=== PATIENT | male | born 1985 | race Two or more races ===

== ENCOUNTER 2020-11-03 14:15 | Emergency (ER) | payer MEDICAID ==
[~2020-11-03] VITALS: Ht 165.1 cm; Wt 90.9 kg
[~2020-11-03 14:15] MED LIST: ASPI-630 PO; ATOR20TA58 PO; INSU100V13 SQ; LINA1TAB5 PO; SITA1TAB11 PO; TERB250T84 PO
[2020-11-03] MEDS ORDERED: TETRACAINE 0.5% OPHTH SOLUTION 4ML BOTTLE. ONE (15:11)
[2020-11-03] MEDS ORDERED: FLUORESCEIN OPHTH TEST STRIP. ONE (15:11)
[2020-11-03] MEDS ORDERED: EYE-STREAM OPHTH SOLUTION 120 ML BOTTLE. OD ONE (15:30)
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
[2020-11-03] MEDS ORDERED: TETRACAINE 0.5% OPHTH SOLUTION 4ML BOTTLE. OD ONE (15:45)
[2020-11-03] MEDS ORDERED: FLUORESCEIN OPHTH TEST STRIP. OD ONE (15:45)
[2020-11-03 16:01] VITALS: BP 130/86
[2020-11-03] MEDS ORDERED: KETO5DRO24 EACHEYE (16:08)
[2020-11-03] MEDS ORDERED: ERYT1OIN6 OP (16:14)
[2020-11-03] MEDS ORDERED: ERYTHROMYCIN 0.5% OPHTH OINTMENT 1GM TUBE. OD ONE (16:15)
== END 2020-11-03 17:00 | disposition home or self-care (01) ==
LOC: ER 14:15
DX: S05.01XA Injury of conjunctiva and corneal abrasion without foreign body, right eye, initial encounter (principal); H93.13 Tinnitus, bilateral; E10.9 Type 1 diabetes mellitus without complications; E78.00 Pure hypercholesterolemia, unspecified; Z87.891 Personal history of nicotine dependence; X58.XXXA Exposure to other specified factors, initial encounter; Y93.89 Activity, other specified; Y92.89 Other specified places as the place of occurrence of the external cause; Y99.8 Other external cause status
CPT/HCPCS: 99283